=== PATIENT | female | born 1975 | race Caucasian/White ===

== ENCOUNTER → 2017-09-23 | Outpatient (CLI) | payer OTHER | LOC: LAB.O 08:12 | PROVIDERS: ATTEND Family Medicine | DX: N95.8 Other specified menopausal and perimenopausal disorders (principal); R53.82 Chronic fatigue, unspecified; I10 Essential (primary) hypertension ==

== ENCOUNTER → 2018-08-16 | Outpatient (CLI) | payer OTHER ==
--- NOTE | 2018-08-16 20:36 | US ---
EXAM DESCRIPTION: Pelvis Transvaginal: Ultrasound. CLINICAL HISTORY: 43 years Female OTHER SPECIFIED IRREGULAR MENSTRUATION. No control or HRT. COMPARISON: None. TECHNIQUE: Endovaginal scanning; Dumont-scale and Doppler modes. FINDINGS: Uterus 9.7 x 5.0 x 4.9 cm cc. Endometrial thickness is 3.2 mm. Myometrium appears heterogeneous.. 1.7 x 1.4 cm hypoechoic mass. 1.5 x 1.3 cm hyperechoic mass. 2.9 x 2.1 x 2.1 cm hyperechoic mass. Uterus not retroflexed. Cervix not well seen.. Cul-de-sac contains no fluid. Right ovary 2.1 x 2.3 x 1.0 cm 3.8 mL.. Normal color Doppler vascularity. No cysts. 2.4 mm calcification. No adnexal mass or free fluid. Left ovary 3.7 x 2.2 x 1.7 cm 7.5 mm.. Normal color Doppler vascularity. 1.2 cm simple follicle. 1.3 cm simple follicle. No cysts. No adnexal mass or free fluid. IMPRESSION: 1. Uterus in normal position with normal size. No endometrial thickening or fluid. At least 3 fibroids were identified. No fluid in the cul-de-sac. 2. Right ovary with a 2.4 cm calcification but otherwise unremarkable. 1.2 and 1.2 cm left ovarian follicles. Normal left ovarian vascularity. No adnexal fluid. Electronically signed by: Haresh Fajardo MD 08/16/2018 8:33 PM CDT
== END ==
LOC: US 10:14
PROVIDERS: ATTEND Family Medicine
DX: N92.5 Other specified irregular menstruation (principal); D25.9 Leiomyoma of uterus, unspecified

== ENCOUNTER → 2018-11-21 | Outpatient (CLI) | payer OTHER | LOC: GMAL 16:33 | PROVIDERS: ATTEND Family Medicine | DX: E83.42 Hypomagnesemia (principal); E87.6 Hypokalemia ==

== ENCOUNTER → 2018-12-22 | Outpatient (CLI) | payer OTHER | LOC: GMAL 16:34 | PROVIDERS: ATTEND Family Medicine | DX: E83.42 Hypomagnesemia (principal); E87.6 Hypokalemia ==

== ENCOUNTER → 2019-03-13 | Outpatient (CLI) | payer OTHER | LOC: GMAJS 16:46 | PROVIDERS: ATTEND Physician Assistant | DX: R42 Dizziness and giddiness (principal) ==

== ENCOUNTER → 2019-03-22 | Outpatient (CLI) | payer OTHER ==
--- NOTE | 2019-03-23 13:15 | MRI ---
EXAM DESCRIPTION: Brain w/oContrast CLINICAL HISTORY: 43 years Female, [place] COMPARISON: None available. TECHNIQUE: Multiplanar multiecho imaging of the brain was performed without the administration of intravenous contrast. FINDINGS: No acute major vascular territorial infarct or acute intraparenchymal hemorrhage. No intra-axial or extra-axial fluid collections are identified. The cisterns and ventricles appear normal in caliber. The sella and suprasellar regions demonstrate no gross abnormality. The structures of the posterior fossa are intact. The visualized paranasal sinuses and mastoid air cells appear normal. The globes are intact bilaterally. Review of the bones demonstrates no gross abnormality. IMPRESSION: Unremarkable MRI of the brain. Electronically signed by: María Back MD 03/23/2019 1:13 PM [facility]
== END ==
LOC: MRI 08:00
PROVIDERS: ATTEND Family Medicine
DX: R51 Headache (principal)

== ENCOUNTER → 2020-02-09 | Outpatient (CLI) | payer OTHER | LOC: LAB.O 14:15 | PROVIDERS: ATTEND Family Medicine | DX: R53.83 Other fatigue (principal); N91.5 Oligomenorrhea, unspecified; E24.9 Cushing's syndrome, unspecified ==